=== PATIENT | male | born 1950 | race African-American/Black ===

== ENCOUNTER 2017-07-29 13:41 | Outpatient (CLI) | payer MEDICARE, BC ==
--- NOTE | 2017-07-29 15:36 | ULT ---
RENAL SONOGRAM: 07/29/17 HISTORY: Chronic kidney disease. FINDINGS: The right kidney measures 11.1 cm x 6 cm. There is a tiny hypoechoic exophytic cystic structure seen mid portion right kidney measuring 0.9 cm which is difficult to characterize but probably represents a small cyst. There is no additional cystic or solid lesion involving the right kidney and there is n o hydronephrosis, renal calculus, or perinephric fluid collection. The left kidney demonstrates a normal sonographic appearance without evidence of a renal mass, renal calculus or hydronephrosis. The left kidney measures 11.2 cm x 7.1 cm. The urinary bladder is completely decompressed and not well evaluated on this exam. Urinary bladder v olume is 25 mL. The visualized right hepatic lobe demonstrates increased echogenicity suggesting fatty infiltration. IMPRESSION: 1. Difficult to characterize exophytic cystic lesion mid portion right kidney likely related to a small cyst. 2. No evidence of hydronephrosis bilaterally. 3. Suboptimal evaluation urinary bladder which is decompressed. 4. Fatty infiltration of the visualized right hepatic lobe. POS: [facility]
== END 2017-07-29 13:42 | disposition home or self-care (01) ==
LOC: ULT 13:41
PROVIDERS: ATTEND Internal Medicine Nephrology
DX: N18.1 Chronic kidney disease, stage 1 (principal); K76.0 Fatty (change of) liver, not elsewhere classified; N28.89 Other specified disorders of kidney and ureter
CPT/HCPCS: 76770

== ENCOUNTER 2018-06-17 16:29 | Emergency (ER) | payer MEDICARE, BC ==
[~2018-06-17 16:29] MED LIST: ISOVUE-370 76%-LOCM 1 ML ONE
[2018-06-17] MEDS ORDERED: Morphine 4 MG/ML VIAL ONE (17:15)
[2018-06-17] MEDS ORDERED: Ondansetron PF 4 MG/2 ML Vial ONE (17:15)
[2018-06-17 17:32] LABS: Bilirubin Negative (Negative); Blood, Urine Negative (Negative); Clarity CLEAR (Clear); Glucose, Urine (Dipstick) Negative (Negative); Leukocyte Negative (Negative); Nitrite Negative (Negative); Protein, Urine (Dipstick) Trace mg/dL (Neg-Trace); Specific Gravity, Urine 1.027 (1.002-1.036); pH, Urine 5.5 (5.0-9.0)
[2018-06-17 17:36] LABS: ALT (SGPT) 23 U/L (8-55); AST (SGOT) 13 U/L (5-34); Albumin 4.1 g/dL (3.4-4.8); Alkaline Phosphatase 47 U/L (40-150); Anion Gap 13 mmol/L (10-20); BUN (Urea Nitrogen) 18 mg/dL (8.4-25.7); Bilirubin, Total 0.9 mg/dL (0.2-1.2); Calc. Creatinine Clearance 0 mL/min (70-130); Calcium 9.7 mg/dL (7.8-10.44); Carbon Dioxide 27 mmol/L (23-31); Chloride 103 mmol/L (98-107); Estimated GFR-MDRD Greater than 90; Glucose 146 mg/dL (80-115); Potassium 3.4 mmol/L (3.5-5.1); Protein, Total 7.1 g/dL (5.8-8.1); Sodium 140 mmol/L (136-145)
[2018-06-17 17:53] LABS: #Basophils 0.1 thou/uL (0.0-0.2); #Eosinphils 0.1 thou/uL (0.0-0.7); #Lymphocytes 2.7 thou/uL (1.20-3.40); #Monocytes 0.6 thou/uL (0.11-0.59); #Neutrophils 4.5 thou/uL (1.40-6.50); %Basophils 1.3 % (0.0-1.0); %Eosinophils 1.6 % (0.0-10.0); %Lymphocytes 33.8 % (21.0-51.0); %Monocytes 7.5 % (0.0-10.0); %Neutrophils 55.8 % (42.0-75.0); Hemoglobin 14.3 g/dL (14.0-18.0); Mean Corpuscular HGB CONC 31.4 g/dL (32.0-36.0); Mean Corpuscular Hemoglobin 28.9 pg (27.0-31.0); Mean Platelet Volume 9.5 fL (7.4-10.4); Platelet Count 204 thou/uL (130-400); RBC Distribution Width 12.1 % (11.5-14.5); Red Blood Cell (RBC) Count 4.95 mill/uL (4.70-6.10); White Blood Cell (WBC) Count 8.1 thou/uL (4.8-10.8)
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
== END 2018-06-17 19:20 | disposition home or self-care (01) ==
LOC: ERS 16:29
DX: S16.1XXA Strain of muscle, fascia and tendon at neck level, initial encounter (principal); M25.511 Pain in right shoulder; E11.9 Type 2 diabetes mellitus without complications; E78.5 Hyperlipidemia, unspecified; I10 Essential (primary) hypertension; Z79.82 Long term (current) use of aspirin; Z79.899 Other long term (current) drug therapy; V43.52XA Car driver injured in collision with other type car in traffic accident, initial encounter
CPT/HCPCS: 70450; 71260; 72125; 74177; 80053; 81003; 83605; 85025; 96374; 96375; J2270; J2405; Q9966

== ENCOUNTER → 2019-05-03 | Day surgery (SDC) | payer MEDICARE ==
[~2019-05-03] MED LIST changes: +Bupivacaine 0.25% HCL 30 ML VIAL ONE; +EPINEPHrine 1 MG/ML AMP ONE; -ISOVUE-370 76%-LOCM 1 ML ONE; +Ketorolac Tromethamine 30 MG/ML VIAL ONE; +Lidocaine 2% Jelly 5 ML TUBE ONE
[2019-05-03 12:34] LABS: #Eosinphils 0.1 thou/uL (0.0-0.7); #Lymphocytes 2.3 thou/uL (1.20-3.40); #Monocytes 0.5 thou/uL (0.11-0.59); #Neutrophils 4.9 thou/uL (1.40-6.50); %Basophils 0.5 % (0.0-1.0); %Lymphocytes 29.5 % (21.0-51.0); %Monocytes 6.4 % (0.0-10.0); %Neutrophils 62.6 % (42.0-75.0); Hemoglobin 14.8 g/dL (14.0-18.0); Mean Corpuscular HGB CONC 32.3 g/dL (32.0-36.0); Mean Corpuscular Hemoglobin 29.5 pg (27.0-31.0); Mean Corpuscular Volume 91.2 fL (78.0-98.0); Mean Platelet Volume 9.2 fL (7.4-10.4); Platelet Count 210 thou/uL (130-400); RBC Distribution Width 11.8 % (11.5-14.5); Red Blood Cell (RBC) Count 5.02 mill/uL (4.70-6.10); White Blood Cell (WBC) Count 7.8 thou/uL (4.8-10.8)
[2019-05-03 13:06] LABS: Anion Gap 13 mmol/L (10-20); BUN (Urea Nitrogen) 14 mg/dL (8.4-25.7); Calc. Creatinine Clearance 0 mL/min (70-130); Calcium 9.9 mg/dL (7.8-10.44); Carbon Dioxide 29 mmol/L (23-31); Chloride 101 mmol/L (98-107); Estimated GFR-MDRD Greater than 90; Glucose 102 mg/dL (80-115); Potassium 3.4 mmol/L (3.5-5.1); Sodium 140 mmol/L (136-145)
--- NOTE | 2019-05-04 10:17 | PRG ---
DATE OF SERVICE: 05/03/2019 Mr. Becerra is an obese 68-year-old black male. He had presented to my office earlier today for followup in regard to a painful anal fissure and attempted medical management had had failed and I had recommended proceeding with surgical treatment of his anal fissure. Due to the extent of his discomfort and the length of his symptoms, I offered him surgery today on (05/03) in light of the upcoming holidays. He preferred that and he was therefore scheduled for outpatient surgical treatment of his anal fissure. This was to be a lateral internal sphincterotomy and fissurectomy. He presented to the [facility], where he underwent laboratory evaluation and EKG. His laboratory evaluation showed a normal CBC and an essentially normal basic metabolic panel (the potassium was slightly low at 3.4). His EKG, however, showed atrial fibrillation. The patient had no knowledge of atrial fibrillation or any history of cardiac problems or concerns. He denied seeing a janitorial maintenance worker. He denied any chest pain or shortness of breath. His rate was well controlled at a rate of about 67. He had never been on anticoagulation. In light of his new diagnosis, I canceled his elective surgery for today (05/03) and called Dr. Marshall Tao, the on-call janitorial maintenance worker. He graciously recommended anticoagulant therapy and arranged for a followup visit with Mr. Becerra to be seen in the Cardiology office sometime this week. This appointment was pending at the time that I last spoke with Mr. Becerra. It was to be with either Dr. Tao or one of his colleagues. I had a lengthy conversation with Mr. Becerra and his regarding the diagnosis, the indications for anticoagulation therapy, and the reasons for the cancellation of his surgery. Although, he was understandably disappointed, he of course understood the reasons for avoiding the surgery until this has been evaluated and treated appropriately. I have asked Mr. Becerra to contact my office after he has been cleared from a cardiology standpoint and we will gladly reschedule his surgery in regard to his anal fissure. I wrote him a prescription for Eliquis 5 mg p.o. b.i.d. and instructed he and his regarding the potential risks with the medication and potential bleeding problems. He was discharged from the [facility]. Job ID: [id number]
--- NOTE | 2019-05-06 13:10 | EKG ---
Test Reason : PREOP Blood Pressure : / mmHG Vent. Rate : 067 BPM Atrial Rate : 258 BPM P-R Int : 000 ms QRS Dur : 090 ms QT Int : 382 ms P-R-T Axes : 000 029 050 degrees QTc Int : 403 ms Atrial fibrillation Nonspecific ST and T wave abnormality Abnormal ECG Confirmed by JENN LEE ([id number]) on 05/06/2019 1:10:27 PM Referred By: SHAHRAM Confirmed By:JENN LEE
== END ==
LOC: SDC 11:05
PROVIDERS: ATTEND Specialist
DX: K60.2 Anal fissure, unspecified (principal); Z53.09 Procedure and treatment not carried out because of other contraindication
CPT/HCPCS: 80048; 85025; 93005; 93010; J0131; J0171; J0690; J1885; S0020

== ENCOUNTER 2019-06-01 06:00 | Day surgery (SDC) | payer MEDICARE ==
[2019-05-31 10:26] VITALS: BMI 39.1
[2019-06-01] MEDS ORDERED: Fentanyl 100 MCG/2 ML VIAL ONE (06:34)
[2019-06-01] MEDS ORDERED: HYDROmorphone 2 MG/ML VIAL ONE (06:34)
[2019-06-01 06:39] LABS: #Basophils 0.1 thou/uL (0.0-0.2); #Eosinphils 0.1 thou/uL (0.0-0.7); #Lymphocytes 2.4 thou/uL (1.20-3.40); #Monocytes 0.6 thou/uL (0.11-0.59); #Neutrophils 5.4 thou/uL (1.40-6.50); %Eosinophils 0.6 % (0.0-10.0); %Monocytes 7.2 % (0.0-10.0); %Neutrophils 63.1 % (42.0-75.0); Hemoglobin 13.9 g/dL (14.0-18.0); Mean Corpuscular HGB CONC 31.7 g/dL (32.0-36.0); Mean Corpuscular Volume 91.6 fL (78.0-98.0); Mean Platelet Volume 8.9 fL (7.4-10.4); Platelet Count 207 thou/uL (130-400); RBC Distribution Width 11.9 % (11.5-14.5); White Blood Cell (WBC) Count 8.6 thou/uL (4.8-10.8)
[2019-06-01] MEDS ORDERED: Bupivacaine 0.25% HCL 30 ML VIAL ONE ×2 (06:54→07:39)
[2019-06-01] MEDS ORDERED: Lidocaine 1% w/Epinephrine 1:100K 20 ML VIAL ONE (06:55)
[2019-06-01] MEDS ORDERED: Lidocaine 2% Jelly 5 ML TUBE ONE (06:55)
[2019-06-01 07:05] LABS: Anion Gap 12 mmol/L (10-20); BUN (Urea Nitrogen) 16 mg/dL (8.4-25.7); Calc. Creatinine Clearance 142 mL/min (70-130); Calcium 9.2 mg/dL (7.8-10.44); Carbon Dioxide 30 mmol/L (23-31); Chloride 100 mmol/L (98-107); Estimated GFR-MDRD Greater than 90; Glucose 117 mg/dL (80-115); Potassium 3.5 mmol/L (3.5-5.1); Sodium 138 mmol/L (136-145)
[2019-06-01] MEDS ORDERED: Midazolam HCl 2 mg/2 ml Vial ONE (07:19)
[2019-06-01] MEDS ORDERED: Ketorolac Tromethamine 30 MG/ML VIAL ONE (07:19)
[2019-06-01] MEDS ORDERED: HYDROmorphone 2 MG/ML VIAL SLOW IVP PRN (07:54)
[2019-06-01] MEDS ORDERED: Promethazine HCl 25 MG/ML VIAL SLOW IVP PRN (07:54)
[2019-06-01] MEDS ORDERED: Promethazine HCl 25 MG/ML VIAL ONE (09:01)
--- NOTE | 2019-06-01 09:17 | OP ---
DATE OF PROCEDURE: 06/01/2019 PREOPERATIVE DIAGNOSIS: Anal fissure. POSTOPERATIVE DIAGNOSIS: Anal fissure. PROCEDURE PERFORMED: Left lateral internal sphincterotomy, fissurectomy. FINANCIAL ASSOCIATE: Kalyan Quezada, medical student. ANESTHESIA: General endotracheal. INDICATIONS FOR PROCEDURE: The patient is a 68-year-old obese black male. He presents with a longstanding history of anorectal pain. He was found to have a posterior anal fissure and I had recommended sphincterotomy and fissurectomy. On the date he initially presented for surgery this past month, he was found to be unexpectedly in atrial fibrillation and his surgery on that date was canceled. He has subsequently undergone cardiology evaluation and is cleared for surgery at this time. The patient notes that he is continued to use the topical nitroglycerin and that his pain is actually improved compared to when his for surgery was first scheduled. DESCRIPTION OF OPERATION: Informed consent was obtained. The patient was taken to the operating room where general anesthesia was obtained with the patient in supine position. He was then placed into dorsal lithotomy position using stirrups. Perianal area was prepped with Betadine, draped in sterile fashion. Local anesthetic was infiltrated in a 4-quadrant intersphincteric fashion using a mixture of lidocaine with epinephrine and Marcaine. Thorough examination was carried out within the anorectal canal using the anal speculum. The only abnormality noted was a relatively superficial posterior anal fissure. Attention was turned to the left lateral aspect. Additional local anesthetic was infiltrated. A small incision was created over the palpable internal sphincter. The sphincter was dissected free with a hemostat and divided with electrocautery. By palpation, the entire internal sphincter had been divided. The defect was closed with a running locking suture of 3-0 Vicryl. Attention was turned posteriorly. The fissure was relatively superficial. It was also infiltrated with local with epinephrine and it was debrided with a scalpel to fresh edges. The fissure was then closed with a running locking suture of 3-0 Vicryl. Additional local anesthetic was infiltrated circumferentially. Avitene was placed within the anal canal and dry gauze and mesh pants placed externally. There were no complications. Blood loss was negligible. The patient tolerated the procedure well and was taken to recovery in stable condition. Job ID: [id number]
[2019-06-01] MEDS ORDERED: Dexamethasone 20 MG/5 ML VIAL ONE (11:45)
[2019-06-01] MEDS ORDERED: PROPOFOL 200 MG/20 ML VIAL ONE (11:45)
[2019-06-01] MEDS ORDERED: Rocuronium Bromide 10 MG/ML (10ML VIAL) ONE (11:45)
[2019-06-01] MEDS ORDERED: Glycopyrrolate 0.2 MG/ML 5 ML SYRINGE ONE (11:45)
[2019-06-01] MEDS ORDERED: Lidocaine 1% PF 5 ML VIAL ONE (11:45)
[2019-06-01] MEDS ORDERED: Succinylcholine Chloride 20 MG/ML 10 ml SYRINGE FS ONE (11:45)
[2019-06-01] MEDS ORDERED: Ondansetron PF 4 MG/2 ML Vial ONE (11:45)
== END 2019-06-01 10:30 | disposition home or self-care (01) ==
LOC: SDC 06:00
PROVIDERS: ATTEND Specialist
PROC: 0D8R0ZZ Division of Anal Sphincter, Open Approach (ICD-10-PCS; principal; 2019-06-01)
DX: K60.2 Anal fissure, unspecified (principal); E78.00 Pure hypercholesterolemia, unspecified; I10 Essential (primary) hypertension; E11.9 Type 2 diabetes mellitus without complications; E66.9 Obesity, unspecified; Z68.39 Body mass index [BMI] 39.0-39.9, adult; Z87.891 Personal history of nicotine dependence; Z79.82 Long term (current) use of aspirin; Z79.84 Long term (current) use of oral hypoglycemic drugs; Z79.899 Other long term (current) drug therapy; Z88.5 Allergy status to narcotic agent
CPT/HCPCS: 36415; 80048; 85025; 93005; 93010; J0690; J1100; J1170; J1885; J2001; J2250; J2405; J2550; J2704; J3010; S0020